=== PATIENT | male | born 1980 | race Caucasian/White ===

== ENCOUNTER 2017-10-25 06:55 | Emergency (ER) | END 2017-10-25 10:04 | disposition home or self-care (01) ==

== ENCOUNTER 2018-08-18 23:46 | Emergency (ER) | payer OTHER ==
[~2018-08-18] VITALS: Ht 177.8 cm; Wt 85.4 kg
[~2018-08-18 23:46] MED LIST: ACET500C5 PO; BEN50 PO; DOCU-144 PO; ELIM TOP; MAGN296S40 PO; ONDA4TAB8 PO; PRED20TA PO
[2018-08-18 23:47] VITALS: Ht 177.8 cm; Wt 85.4 kg
[2018-08-19] MEDS ORDERED: DICYCLOMINE 20 MG INJ IM ONE (01:00)
--- NOTE | 2018-08-19 01:53 | ERD ---
ER Documentation Chief Complaint Chief Complaint ABD PAIN WITH CONSTIPATION X4DAYS HPI 37-year-old male who presents to the emergency room with approximately 7 days of symptoms of intermittent abdominal discomfort. He notes localization of left lower quadrant. The pain is 7 out of 10. He states constipation over the last several days but did have a bowel movement today. Mild nausea but no vomiting. No fevers or chills. ROS All systems reviewed and are negative except as per history of present illness. Medications Home Meds Active Scripts Ondansetron (Ondansetron Odt) 4 Mg Tab.rapdis, 4 MG PO Q6H PRN for NAUSEA AND/OR VOMITING, #10 TAB Prov:KEYLA VALENTE MD 08/19/18 Dicyclomine HCl (Dicyclomine HCl) 10 Mg Capsule, 10 MG PO TID PRN for ABDOMINAL CRAMPING, #20 CAP Prov:KEYLA VALENTE MD 08/19/18 Docusate Sodium* (Colace*) 100 Mg Capsule, 100 MG PO TID, #30 CAP Prov:APOLONIA WILSON PA-C 10/25/17 Magnesium Citrate* (Magnesium Citrate*) 296 Ml Solution, 296 ML PO ONCE, #1 BOTTLE Prov:APOLONIA WILSON PA-C 10/25/17 Acetaminophen* (Tylophen*) 500 Mg Capsule, 1 CAP PO Q6H PRN for PAIN AND OR ELEVATED TEMP, #30 CAP Prov:APOLONIA WILSON PA-C 10/25/17 Ondansetron Hcl* (Zofran*) 4 Mg Tablet, 4 MG PO Q6H for NAUSEA AND/OR VOMITING, #30 TAB Prov:APOLONIA WILSON PA-C 10/25/17 Prednisone* (Prednisone*) 20 Mg Tab, 40 MG PO DAILY for 4 Days, TAB Prov:JEAN LUNA PA-C 10/21/15 Diphenhydramine Hcl* (Benadryl*) 50 Mg Cap, 50 MG PO Q6 PRN for ITCHING, #20 CAP Prov:JEAN LUNA PA-C 10/21/15 Permethrin* (Elimite*) 5% Cr, 1 APPLIC TOP ONCE, #1 TUB Prov:JEAN LUNA PA-C 10/21/15 Allergies Allergies: Coded Allergies: No Known Allergy (Unverified , 1/17/14) PMhx/Soc History of Surgery: No Anesthesia Reaction: No Hx Neurological Disorder: No Hx Respiratory Disorders: No Hx Cardiac Disorders: No Hx Psychiatric Problems: No Hx Miscellaneous Medical Probl: No (PT. DENIES MEDICAL AND SURCAL HX.) Hx Alcohol Use: No Hx Substance Use: Yes (crystal meth ) Hx Tobacco Use: Yes Physical Exam Vitals Vital Signs Date Temp Pulse Resp B/P (MAP) Pulse Ox O2 O2 Flow FiO2 Time Delivery Rate 08/18/18 97.6 114 19 136/88 98 23:47 (104) Physical Exam General: Well developed, well nourished, no acute distress Head: Normocephalic, atraumatic. Eyes: Pupils equally reactive, EOM intact ENT: Moist mucous membranes Neck: Supple, no lymphadenopathy Respiratory: Lungs clear bilaterally, no distress Cardiovascular: RRR, no murmurs, rubs, or gallops Abdominal: Soft, mild localization of left lower quadrant : Deferred MSK: No edema, no unilateral swelling, 5/5 strength Neurologic: Alert and oriented, moving all extremities, normal speech, no focal weakness, no cerebellar signs Skin: No rash Psych: Normal mood Result Diagram: 08/19/18 0125 08/19/18 0125 Results 24 hrs Laboratory Tests Test 08/19/18 01:25 White Blood Count 9.8 10^3/ul Red Blood Count 3.48 10^6/ul Hemoglobin 10.6 g/dl Hematocrit 30.3 % Mean Corpuscular Volume 87.1 fl Mean Corpuscular Hemoglobin 30.5 pg Mean Corpuscular Hemoglobin Concent 35.0 g/dl Red Cell Distribution Width 13.3 % Platelet Count 279 10^3/UL Mean Platelet Volume 9.3 fl Immature Granulocytes % 0.500 % Neutrophils % 49.7 % Lymphocytes % 39.2 % Monocytes % 8.3 % Eosinophils % 2.0 % Basophils % 0.3 % Nucleated Red Blood Cells % 0.0 /100WBC Immature Granulocytes # 0.050 10^3/ul Neutrophils # 4.8 10^3/ul Lymphocytes # 3.8 10^3/ul Monocytes # 0.8 10^3/ul Eosinophils # 0.2 10^3/ul Basophils # 0.0 10^3/ul Nucleated Red Blood Cells # 0.0 10^3/ul Sodium Level 140 mmol/L Potassium Level 3.5 mmol/L Chloride Level 102 mmol/L Carbon Dioxide Level 29 mmol/L Anion Gap 9 Blood Urea Nitrogen 15 mg/dl Creatinine 0.90 mg/dl Est Glomerular Filtrat Rate mL/min > 60 mL/min Glucose Level 80 mg/dl Calcium Level 9.3 mg/dl Total Bilirubin 0.3 mg/dl Direct Bilirubin 0.00 mg/dl Indirect Bilirubin 0.3 mg/dl Aspartate Amino Transf (AST/SGOT) 29 IU/L Alanine Aminotransferase (ALT/SGPT) 39 IU/L Alkaline Phosphatase 52 IU/L Total Protein 6.8 g/dl Albumin 4.0 g/dl Globulin 2.80 g/dl Albumin/Globulin Ratio 1.42 Lipase 50 U/L Current Medications Medications Dose Sig/Isabel Start Time Status Last (Trade) Ordered Route PRN Stop Time Admin Dose Reason Admin Dicyclomine 10 mg ONCE ONCE 08/19/18 DC 08/19/18 HCl IM 01:00 02:28 (Bentyl) 08/19/18 01:01 Ketorolac 15 mg ONCE ONCE 08/19/18 DC Tromethamine IV 02:42 (Toradol) 08/19/18 02:43 Procedures/MDM EKG, MONITORS, & DIAGNOSTIC IMAGING: CT abdomen and pelvis: IMPRESSION: 1. Distended fluid filled stomach and mild fluid identified throughout the small bowel without obstruction suggestive of a gastroenteritis. 2. Mild retained stool within the proximal colon. 3. No CT evidence for appendicitis. LAB INTERPRETATION: I reviewed the laboratory testing and it shows no evidence of acute process MEDICAL DECISION MAKING: The patient presents with left lower quadrant abdominal pain. Consider possible constipation but given localization concern for possible diverticulitis. No evidence of hernia or acute testicular process. ER COURSE: * Patient was given IV fluids and nonnarcotic pain medication. Laboratory testing and diagnostic imaging is unrevealing other than possible gastroenteritis versus colitis. * This is likely not infections and the patient would not benefit from antibiotics. The patient will benefit from anti-spider dramatic, stool softener and outpatient follow-up. The patient was advised if symptoms persist to follow-up with a GI specialist. CONSULTATION: None DISPOSITION PLAN: The patient does not have an identifiable emergent medical condition that warrants inpatient hospitalization at this time. The patient is deemed safe for discharge with outpatient follow-up. We discussed follow up with the patient's primary care doctor within 24 to 48 hours as needed. We also discussed return to the emergency room for worsening symptoms or worsening condition. Outpatient referral: GI as needed Discharge Medications: [place] Diagnosis: Primary Impression: Generalized abdominal pain Condition: Stable KEYLA VALENTE MD Aug 19, 2018 01:53
[2018-08-19] MEDS ORDERED: DICY10CA40 PO (02:37)
[2018-08-19] MEDS ORDERED: ONDA4TAB14 PO (02:37)
[2018-08-19] MEDS ORDERED: KETOROLAC 15 MG INJ IV ONE (02:42)
[2018-08-19] MEDS ORDERED: LIDOCAINE/MYLANTA 40 ML BTL PO STA (02:50)
[2018-08-19] MEDS ORDERED: BELLADONNA/PHENOBARBITAL TAB PO STA (02:50)
[2018-08-19] MEDS ORDERED: FAMOTIDINE 20 MG INJ IV STA (02:50)
[2018-08-19 03:25] VITALS: BP 113/58; PULSE 88; RESP 16
== END 2018-08-19 03:25 | disposition home or self-care (01) ==
LOC: E/R 23:46
DX: R10.84 Generalized abdominal pain (principal); Z87.891 Personal history of nicotine dependence
CPT/HCPCS: 36415; 74176; 80053; 83690; 85025; 96372; 96374; J0500; J1885; Z7502; Z7610